=== PATIENT | female | born 2000 | race African-American/Black ===

== ENCOUNTER 2024-03-24 16:27 | Emergency (ER) | payer OTHER ==
[2024-03-24] MEDS ORDERED: Ondansetron PF 4 MG/2 ML Vial ONE (16:38)
[2024-03-24] MEDS ORDERED: Sodium Chloride 0.9% 1,000 ML ONE ×2 (16:38→18:20)
[2024-03-24 17:10] LABS: Base Excess-Venous 10.7 mmol/L (-2.0 to 3.0); Bicarbonate (HCO3v) 35.9 mmol/L (22.0-28.0); CO2 Tension (PvCO2) 46.5 mmHg (42.0-51.0); Calcium, Ionized 1.11 mmol/L (1.15-1.33); Chloride 95 mmol/L (98-107); Hemoglobin - Calc 17.6 g/dL (12.0-16.0); Potassium 3.3 mmol/L (3.5-5.1); Sodium 141 mmol/L (138-145); T. Carbon Dioxide 37.3 mmol/L (22.0-28.0); vO2 Saturation-calc 98.7 % (60.0-85.0)
[2024-03-24 17:13] LABS: Band 8 % (5-11); Hematocrit 45.1 % (36.0-47.0); Hemoglobin 14.1 g/dL (12.0-16.0); Hypochromia SLIGHT = 6-15 cells (100X) (0-5/hpf); Lymphocytes 10 % (21-51); MDiff Complete? YES; Mean Corpuscular HGB CONC 31.3 g/dL (32.0-36.0); Mean Corpuscular Hemoglobin 28.1 pg (27.0-31.0); Mean Corpuscular Volume 89.9 fl (78.0-98.0); Mean Platelet Volume 9.3 fL (7.4-10.4); Metamyelocyte 1 % (0-0); Monocytes 4 % (0-10); Neutrophil 77 % (42-75); Platelet Adequacy Comment Appears Adequate; Platelet Count 366 10x3/uL (130-400); RBC Distribution Width 11.7 % (11.5-14.5); Red Blood Cell (RBC) Count 5.02 mill/uL (4.20-5.40); White Blood Cell (WBC) Count 12.2 10x3/uL (4.8-10.8)
[2024-03-24 17:14] LABS: Phosphorus 2.6 mg/dL (2.3-4.7)
[2024-03-24 17:16] LABS: ALT (SGPT) 12 U/L (8-55); AST (SGOT) 17 U/L (5-34); Alkaline Phosphatase 78 U/L (40-110); Anion Gap 19 mmol/L (10-20); BUN (Urea Nitrogen) 15 mg/dL (7.0-18.7); Bilirubin, Total 0.7 mg/dL (0.2-1.2); Calc. Creatinine Clearance 0 mL/min (70-130); Calcium 9.9 mg/dL (7.8-10.44); Carbon Dioxide 28 mmol/L (22-29); Chloride 95 mmol/L (98-107); Estimated GFR 64; Glucose 73 mg/dL (70-105); Magnesium 1.5 mg/dL (1.6-2.6); Potassium 3.3 mmol/L (3.5-5.1); Sodium 139 mmol/L (136-145)
[2024-03-24] MEDS ORDERED: Magnesium Oxide 400 MG TAB ONE (17:28)
[2024-03-24] MEDS ORDERED: Potassium Chloride 20 MEQ TAB ONE (17:28)
[2024-03-24 18:55] LABS: Bilirubin Negative (Negative); Blood, Urine Negative (Negative); Clarity Slightly Cloudy (Clear); Glucose, Urine (Dipstick) Negative (Negative); Ketone, Urine 40 mg/dL (Negative); Leukocyte Negative (Negative); Nitrite Negative (Negative); Protein, Urine (Dipstick) > or equal to 300 mg/dL (Neg-Trace); Specific Gravity, Urine 1.024 (1.002-1.036); Urobilinogen 0.2 mg/dL (Less than 2); pH, Urine Greater/Equal 9.0 (5.0-9.0)
[2024-03-24 18:58] LABS: Bacteria/HPF 3+ HPF (None Seen); CAUTI Indications for Culture Pelvic or flank pain; RBC/HPF 0-3 HPF (0-3); WBC/HPF 0-3 HPF (0-3)
[2024-03-24 18:59] LABS: Pregnancy Test - Urine (BHCG) Negative (Negative); Pregu Control Background? CLEAR/WHITE (CLR/WHITE); Pregu Control Bar Appear? YES (CONTROL BAR); Specific Gravity 1.024 (1.002-1.036); Urine Culture Reflex No No
[2024-03-24 19:02] LABS: Amphetamine Not Detected (NotDetected); Barbiturates Screen Not Detected (NotDetected); Benzodiazepine Screen Not Detected (NotDetected); Cocaine Metabolite Screen Not Detected (NotDetected); Methadone Not Detected (NotDetected); Methamphetamine Not Detected (NotDetected); Opiate Screen Not Detected (NotDetected); Oxycodone Screen Not Detected (NotDetected); Phencyclidine (PCP) Not Detected (NotDetected); THC/Cannabinoid Screen Detected (NotDetected); Tricyclic Screen Not Detected (NotDetected)
== END 2024-03-24 19:14 | disposition home or self-care (01) ==
LOC: MADERS 16:27
DX: R11.2 Nausea with vomiting, unspecified (principal); E10.9 Type 1 diabetes mellitus without complications; Z79.85 Long-term (current) use of injectable non-insulin antidiabetic drugs
CPT/HCPCS: 80053; 80306; 81001; 81025; 82010; 82330; 82435; 82803; 83735; 84100; 84132; 84295; 85014; 85025; 96361; 96374; J2405; J7030

== ENCOUNTER 2024-04-12 03:20 | Emergency (ER) | payer OTHER ==
[2024-04-12 03:46] LABS: #Basophils 0.1 thou/uL (0.0-0.2); #Lymphocytes 0.9 thou/uL (1.20-3.40); #Monocytes 0.3 thou/uL (0.11-0.59); #Neutrophils 11.9 thou/uL (1.40-6.50); %Basophils 0.9 % (0.0-1.0); %Lymphocytes 6.8 % (21.0-51.0); %Monocytes 2.3 % (0.0-10.0); %Neutrophils 89.9 % (42.0-75.0); Hematocrit 37.8 % (36.0-47.0); Hemoglobin 12.4 g/dL (12.0-16.0); Mean Corpuscular HGB CONC 32.8 g/dL (32.0-36.0); Mean Corpuscular Hemoglobin 28.8 pg (27.0-31.0); Mean Platelet Volume 8.2 fL (7.4-10.4); Platelet Count 317 10x3/uL (130-400); RBC Distribution Width 11.9 % (11.5-14.5); White Blood Cell (WBC) Count 13.2 10x3/uL (4.8-10.8)
[2024-04-12] MEDS ORDERED: Sodium Chloride 0.9% 1,000 ML ONE (03:51)
[2024-04-12] MEDS ORDERED: Insulin Regular, Human 100 UNIT/ML 10 ML VIAL ONE (03:51)
[2024-04-12] MEDS ORDERED: Ondansetron PF 4 MG/2 ML Vial ONE (03:51)
[2024-04-12 04:05] LABS: ALT (SGPT) 17 U/L (8-55); AST (SGOT) 22 U/L (5-34); Albumin 3.9 g/dL (3.5-5.0); Alkaline Phosphatase 89 U/L (40-110); Anion Gap 27 mmol/L (10-20); BUN (Urea Nitrogen) 23 mg/dL (7.0-18.7); Bilirubin, Total 1.1 mg/dL (0.2-1.2); Calc. Creatinine Clearance 0 mL/min (70-130); Calcium 9.9 mg/dL (7.8-10.44); Carbon Dioxide 14 mmol/L (22-29); Chloride 98 mmol/L (98-107); Estimated GFR 51; Globulin 4.4 g/dL (2.4-3.5); Lipase 6 U/L (8-78); Magnesium 1.5 mg/dL (1.6-2.6); Protein, Total 8.3 g/dL (6.0-8.3); Sodium 134 mmol/L (136-145)
[2024-04-12 04:06] LABS: Glucose 438 mg/dL (70-105)
[2024-04-12 04:07] LABS: Critical Call Chemistry EMS.CLJ@0405
[2024-04-12 04:10] LABS: Base Excess-Venous -6.5 mmol/L (-2.0 to 3.0); CO2 Tension (PvCO2) 23.9 mmHg (42.0-51.0); Calcium, Ionized 1.03 mmol/L (1.15-1.33); Chloride 103 mmol/L (98-107); Hemoglobin - Calc 12.5 g/dL (12.0-16.0); Potassium 4.2 mmol/L (3.5-5.1); Sodium 132 mmol/L (138-145); T. Carbon Dioxide 16.7 mmol/L (22.0-28.0); vO2 Saturation-calc 99.8 % (60.0-85.0)
[2024-04-12] MEDS ORDERED: Haloperidol Lactate 5 MG/ML VIAL ONE (04:12)
== END 2024-04-12 04:38 | disposition left against medical advice (07) ==
LOC: MADERS 03:20
DX: R11.2 Nausea with vomiting, unspecified (principal); E10.9 Type 1 diabetes mellitus without complications; Z55.6 Problems related to health literacy; Z79.4 Long term (current) use of insulin
CPT/HCPCS: 36416; 80053; 82010; 82330; 82803; 83690; 83735; 84100; 85025; 96361; 96374; 96375; J1630; J1815; J2405; J7030

== ENCOUNTER 2024-04-14 21:03 | Emergency (ER) | payer OTHER ==
[2024-04-14] MEDS ORDERED: Haloperidol Lactate 5 MG/ML VIAL ONE (21:31)
[2024-04-14] MEDS ORDERED: Sodium Chloride 0.9% 1,000 ML ONE (21:31)
[2024-04-14 22:07] LABS: Hematocrit 43.4 % (36.0-47.0); Hemoglobin 14.3 g/dL (12.0-16.0); Mean Corpuscular HGB CONC 32.8 g/dL (32.0-36.0); Mean Corpuscular Hemoglobin 28.5 pg (27.0-31.0); Mean Corpuscular Volume 86.7 fl (78.0-98.0); Mean Platelet Volume 9.9 fL (7.4-10.4); Platelet Count 358 10x3/uL (130-400); RBC Distribution Width 11.4 % (11.5-14.5); White Blood Cell (WBC) Count 7.6 10x3/uL (4.8-10.8)
[2024-04-14 22:10] LABS: Eosinophils 1 % (0-10); Lymphocytes 19 % (21-51); MDiff Complete? YES; Monocytes 12 % (0-10); Neutrophil 68 % (42-75)
[2024-04-14 22:16] LABS: BHCG - Serum Negative (NEGATIVE); Pregs Control Background? CLEAR/WHITE (CLR/WHITE); Pregs Control Bar Appear? YES (CONTROL BAR)
[2024-04-14 22:20] LABS: Base Excess-Venous 9.3 mmol/L (-2.0 to 3.0); Bicarbonate (HCO3v) 33.1 mmol/L (22.0-28.0); CO2 Tension (PvCO2) 40.3 mmHg (42.0-51.0); Chloride 85 mmol/L (98-107); Potassium 2.7 mmol/L (3.5-5.1); Sodium 131 mmol/L (138-145); T. Carbon Dioxide 34.3 mmol/L (22.0-28.0); vO2 Saturation-calc 99.3 % (60.0-85.0)
[2024-04-14 22:25] LABS: ALT (SGPT) 17 U/L (8-55); Albumin 4.1 g/dL (3.5-5.0); Alkaline Phosphatase 86 U/L (40-110); Anion Gap 25 mmol/L (10-20); BUN (Urea Nitrogen) 32 mg/dL (7.0-18.7); Bilirubin, Total 1.5 mg/dL (0.2-1.2); Calc. Creatinine Clearance 0 mL/min (70-130); Calcium 9.7 mg/dL (7.8-10.44); Carbon Dioxide 25 mmol/L (22-29); Chloride 84 mmol/L (98-107); Estimated GFR 41; Globulin 4.9 g/dL (2.4-3.5); Glucose 196 mg/dL (70-105); Potassium 3.2 mmol/L (3.5-5.1); Sodium 131 mmol/L (136-145)
[2024-04-14 22:26] LABS: AST (SGOT) 25 U/L (5-34)
[2024-04-14 22:39] LABS: Lipase Less than 4 U/L (8-78)
[2024-04-14 23:22] LABS: Acetaminophen Less than 10 mcg/mL (Less than 10); Alcohol Less than 10.0 mg/dL (Less than 10); Salicylate Less than 8.0 mg/dL (Less than 8.0)
[2024-04-15] MEDS ORDERED: NS 0.9% w/ 20 MEQ KCL 1,000 ML ONE (00:51)
== END 2024-04-15 02:02 | disposition short-term general hospital (02) ==
LOC: MADERS 21:03
DX: N17.9 Acute kidney failure, unspecified (principal); R10.13 Epigastric pain; E10.9 Type 1 diabetes mellitus without complications; E87.20 Acidosis, unspecified; E87.6 Hypokalemia; Z79.4 Long term (current) use of insulin
CPT/HCPCS: 74176; 80053; 80307; 82010; 82330; 82803; 83690; 83735; 84703; 85025; 96361; 96365; 96375; J1630; J3480; J7030

== ENCOUNTER 2025-02-18 11:17 | Emergency (ER) | payer OTHER, SELFPAY ==
[2025-02-18] MEDS ORDERED: Ondansetron PF 4 MG/2 ML Vial ONE (12:13)
[2025-02-18] MEDS ORDERED: Ketorolac Tromethamine 30 MG (1 mL) VIAL ONE (12:13)
[2025-02-18 12:14] LABS: Bicarbonate (HCO3v) 25.7 mmol/L (22.0-28.0); CO2 Tension (PvCO2) 42.7 mmHg (42.0-51.0); Calcium, Ionized 1.10 mmol/L (1.15-1.33); Chloride 106 mmol/L (98-107); Hemoglobin - Calc 15.8 g/dL (12.0-16.0); Potassium 3.9 mmol/L (3.5-5.1); Sodium 137 mmol/L (138-145); T. Carbon Dioxide 27.0 mmol/L (22.0-28.0); vO2 Saturation-calc 95.9 % (60.0-85.0)
[2025-02-18 12:23] LABS: Hematocrit 41.0 % (36.0-47.0); Hemoglobin 13.0 g/dL (12.0-16.0); Manual Diff?? YES; Mean Corpuscular Hemoglobin 28.2 pg (27.0-31.0); Mean Corpuscular Volume 89.1 fl (78.0-98.0); Platelet Count 322 10x3/uL (130-400); Red Blood Cell (RBC) Count 4.60 mill/uL (4.20-5.40); White Blood Cell (WBC) Count 16.6 10x3/uL (4.8-10.8)
[2025-02-18 12:25] LABS: Anion Gap 24 mmol/L (10-20); BUN (Urea Nitrogen) 18 mg/dL (7.0-18.7); Calc. Creatinine Clearance 0 mL/min (70-130); Carbon Dioxide 21 mmol/L (22-29); Chloride 98 mmol/L (98-107); Potassium 3.7 mmol/L (3.5-5.1); Sodium 139 mmol/L (136-145)
[2025-02-18 12:26] LABS: ALT (SGPT) 17 U/L (Less than 34); AST (SGOT) 34 U/L (11-34); Alkaline Phosphatase 118 U/L (40-110); Bilirubin, Total 0.4 mg/dL (0.3-1.2); Calcium 9.7 mg/dL (7.6-10.4); Glucose 301 mg/dL (70-105); Lipase 5 U/L (8-78); Magnesium 1.6 mg/dL (1.6-2.6)
[2025-02-18 12:28] LABS: Albumin 4.1 g/dL (3.1-4.5); Globulin 4.1 g/dL (2.4-3.5)
[2025-02-18 12:33] LABS: MDiff Complete? YES; Platelet Adequacy Comment Appears Adequate
[2025-02-18 12:43] LABS: BHCG - Serum Negative (NEGATIVE); Pregs Control Background? CLEAR/WHITE (CLR/WHITE); Pregs Control Bar Appear? YES (CONTROL BAR)
[2025-02-18 15:00] LABS: Glucose, Urine (Dipstick) 500 mg/dL (Negative); Leukocyte Negative (Negative); Protein, Urine (Dipstick) 100 mg/dL (Neg-Trace); Specific Gravity, Urine 1.015 (1.005-1.030)
[2025-02-18 15:03] LABS: Pregnancy Test - Urine (BHCG) Negative (Negative); Pregu Control Background? CLEAR/WHITE (CLR/WHITE); Pregu Control Bar Appear? YES (CONTROL BAR)
[2025-02-18 15:15] LABS: CAUTI Indications for Culture Pelvic or flank pain; RBC/HPF None Seen HPF (0-3)
[2025-02-18 15:16] LABS: Bacteria/HPF Rare-Few HPF (None Seen); Urine Culture Reflex No No
[2025-02-18 15:22] LABS: Bicarbonate (HCO3v) 24.7 mmol/L (22.0-28.0); CO2 Tension (PvCO2) 47.8 mmHg (42.0-51.0); Calcium, Ionized 1.08 mmol/L (1.15-1.33); Chloride 110 mmol/L (98-107); Hemoglobin - Calc 14.5 g/dL (12.0-16.0); Potassium 4.6 mmol/L (3.5-5.1); Sodium 140 mmol/L (138-145); T. Carbon Dioxide 26.1 mmol/L (22.0-28.0); vO2 Saturation-calc 98.9 % (60.0-85.0)
== END 2025-02-18 15:42 | disposition home or self-care (01) ==
LOC: MADERS 11:17
DX: K52.9 Noninfective gastroenteritis and colitis, unspecified (principal); E11.9 Type 2 diabetes mellitus without complications; Z79.4 Long term (current) use of insulin
CPT/HCPCS: 36416; 74176; 80053; 81001; 81025; 82010; 82330; 82435; 82803; 83605; 83690; 83735; 84100; 84132; 84295; 84703; 85014; 85025; 96365; 96375; 36415-59; J1815; J1885; J2270; J2405; J2550; J7030

== ENCOUNTER 2025-02-20 01:12 | Emergency (ER) | payer SELFPAY ==
[2025-02-20 02:00] LABS: Bicarbonate (HCO3v) 14.1 mmol/L (22.0-28.0); CO2 Tension (PvCO2) 26.0 mmHg (42.0-51.0); Calcium, Ionized 1.05 mmol/L (1.15-1.33); Chloride 103 mmol/L (98-107); Hemoglobin - Calc 13.3 g/dL (12.0-16.0); Potassium 5.4 mmol/L (3.5-5.1); Sodium 126 mmol/L (138-145); T. Carbon Dioxide 14.9 mmol/L (22.0-28.0); vO2 Saturation-calc 95.2 % (60.0-85.0)
[2025-02-20 02:21] LABS: ALT (SGPT) 13 U/L (Less than 34); AST (SGOT) 17 U/L (11-34); Albumin 3.4 g/dL (3.1-4.5); Alkaline Phosphatase 100 U/L (40-110); Anion Gap 31 mmol/L (10-20); BUN (Urea Nitrogen) 19 mg/dL (7.0-18.7); Bilirubin, Total 0.7 mg/dL (0.3-1.2); Calc. Creatinine Clearance 0 mL/min (70-130); Calcium 8.9 mg/dL (7.8-10.44); Carbon Dioxide 10 mmol/L (22-29); Chloride 99 mmol/L (98-107); Globulin 3.7 g/dL (2.4-3.5); Magnesium 1.5 mg/dL (1.6-2.6); Potassium 4.7 mmol/L (3.5-5.1); Sodium 135 mmol/L (136-145)
[2025-02-20 02:24] LABS: Glucose 622 mg/dL (70-105)
[2025-02-20] MEDS ORDERED: INSULIN REGULAR IN 0.9 % NACL 100 ML ONE (02:35)
[2025-02-20] MEDS ORDERED: NS 0.9% w/ 20 MEQ KCL 1,000 ML ONE (02:54)
[2025-02-20 03:24] LABS: #Basophils 0.06 10x3/uL (0.0-0.2); #Eosinophils Less than 0.03 10x3/uL (0.0-0.7); #Monocytes 0.35 10x3/uL (0.11-0.59); #Neutrophils 10.43 10x3/uL (1.40-6.50); %Basophils 0.5 % (0.0-1.0); %Eosinophils 0.1 % (0.0-10.0); %Lymphocytes 8.6 % (21.0-51.0); %Monocytes 2.9 % (0.0-10.0); %Neutrophils 87.5 % (42.0-75.0); Hematocrit 38.3 % (36.0-47.0); Hemoglobin 12.4 g/dL (12.0-16.0); Mean Corpuscular Hemoglobin 28.3 pg (27.0-31.0); Mean Corpuscular Volume 87.4 fL (78.0-98.0); Platelet Count 279 10x3/uL (130-400); Red Blood Cell (RBC) Count 4.38 mill/uL (4.20-5.40); White Blood Cell (WBC) Count 11.93 10x3/uL (4.8-10.8)
== END 2025-02-20 03:34 | disposition short-term general hospital (02) ==
LOC: MADERS 01:12
DX: E10.10 Type 1 diabetes mellitus with ketoacidosis without coma (principal); E10.65 Type 1 diabetes mellitus with hyperglycemia; N28.9 Disorder of kidney and ureter, unspecified; Z79.4 Long term (current) use of insulin
CPT/HCPCS: 36416; 80053; 82010; 82330; 82435; 82803; 83605; 83735; 84100; 84132; 84295; 85014; 85025; 93005; 96361; 96365; 96374; 96375; 96376; 99292; J1630; J1815; J3480; J7030